=== PATIENT | male | born 2000 | race African-American/Black ===

== ENCOUNTER 2022-06-04 08:50 | Emergency (ER) | payer MEDICAID, OTHER ==
[2022-06-04] MEDS ORDERED: Ondansetron ODT 4 MG TAB ONE (09:26)
== END 2022-06-04 09:04 | disposition home or self-care (01) ==
LOC: CSHERS 08:50
DX: J11.1 Influenza due to unidentified influenza virus with other respiratory manifestations (principal)
CPT/HCPCS: 99283; Q0162